=== PATIENT | female | born 1990 | race Caucasian/White ===

== ENCOUNTER → 2018-07-20 12:39 | Outpatient (POV) | payer OTHER, SELFPAY | PROVIDERS: Visit Provider Nurse Practitioner Acute Care | DX: Z00.00 Encounter for general adult medical examination without abnormal findings (principal) ==

== ENCOUNTER 2020-07-18 17:20 | Emergency (ER) | payer OTHER, SELFPAY ==
[2020-07-18 17:37] VITALS: BP 128/78; PULSE 79; RESP 18; TEMP 36.6; O2SAT 100; BMI 19.7
[2020-07-18 17:41] VITALS: BP 128/78; PULSE 79; RESP 18; TEMP 36.6; O2SAT 100
--- NOTE | 2020-07-18 18:09 | HMH.EDUTC ---
[place] Disposition Clinical Impression: Sinusitis Qualifiers: Sinusitis location: unspecified location Chronicity: unspecified Qualified Code(s): J32.9 - Chronic sinusitis, unspecified Disposition: Home, Self-Care Condition on Discharge: Good Instructions: Sinusitis, Sinus Headache, DI for Sinusitis, Sore Throat Additional Instructions: *Monitor Temp, Over the counter Motrin or Tylenol as directed/as needed Tylenol every 4 hours and Motrin every 6 hours (as long as your family doctor has told you that you can take it) for fever or pain. and straight to ER if unable to lower temp less than 101.0 after medication given *Warm salt water gargles may help to soothe the throat *Throat Lozenges *Warm fluids like tea with honey may help to soothe the throat *Sleep elevated *Humidifier/Vaporizer *Flonase 2 sprays in each nostril daily but be aware that it may take 2-3 days before you notice improvement Your throat swab was sent for culture. Those results are typically sent to your primary care. Be sure to follow up in 2-3 days with your family doctor/primary care physician if no improvement so they can review those result and treat if necessary. If you don?t have a primary care doctor, I recommend you get one but in the mean time, you will have to return to a walk in clinic Follow up IMMEDIATELY for new or worsening symptoms or no Noticeable improvement over the next 48-72 hours. 911 for difficulty breathing or swallowing You was tested for today for COVID19 your test result should be back in the next 24-48 hours, you may call to the [facility] tomorrow to see if your test results are back and the result [phone] You was given a handout with instructions for Self Quarantine and Self isolation for while you wait on test results and what to do if they are positive If you are positive the Health Dept will be contacting you also Prescriptions: Fluticasone Propionate [Flonase 50mcg nasal spray 16gm] 1 spr NS DAILY #1 bottle Transmission Status: Pending to [facility] # Azithromycin [Z-Sawyer 250mg Tab] 250 mg PO DIRECTED #6 tab Transmission Status: Pending to [facility] # Referrals: Ruchi Selby [Primary Care Provider] - As needed Time of Disposition: 18:13 Medical Decision Making - Grant Inquiry Pt receiving controlled substance: No Grant was queried for this patient: No Vital Signs: 07/18/20 17:37 07/18/20 17:41 Temperature 97.8 F 97.8 F Temperature Source Oral Pulse Rate 79 Pulse Rate [Left] 79 Respiratory Rate 18 18 Blood Pressure 128/78 Blood Pressure [Right Arm] 128/78 Blood Pressure Mean [Right Arm] 94 Blood Pressure Source [Right Arm] Automatic Cuff Blood Pressure Position [Right Arm] Sitting 02 Sat by Pulse Oximetry 100 Oxygen Delivery Method Room Air - Lab Data Lab results reviewed: Yes: I reviewed the patient's lab results. [place] HPI - General Stated complaint: sore throat Time Seen by Provider: 07/18/20 18:09 Mode of Arrival: Ambulatory Source of Information: Patient Limitations: No Limitations Description of Symptoms (Recalled from Triage Doc. by RN): sore throat, congestion, runny nose, headache, ear ache x 1 week HEENT Symptoms (Recalled from RN notes): Yes Resp Symptoms (Recalled from RN notes): Yes Skin Symptoms (Recalled from RN notes): No MS Symptoms (Recalled from RN notes): No Functional Status (Recalled from RN notes): stable - History of Present Illness Provider Complaint: Patient state that she has been having sinus pressure and drainage, sore throat and feeling of pressure in her ears. States that she was worried that she may have strep throat or something States that she come in and wanted to get checked - Related Data Previous Rx's Medication Instructions Recorded Amoxicillin [Amoxicillin 500mg 500 mg PO TID #30 cap 10/16/19 Cap] Fluticasone Propionate [Flonase 1 spr NS DAILY #1 bottle 10/16/19 50mcg nasal spray 16gm] Azit
[2020-07-18 20:30] LABS: UTC Strep Screen (Rapid) Negative (Negative)
[2020-07-20 17:05] LABS: Covid-19 Nasal PCR Sendout Lex Positive
--- NOTE | 2020-07-20 18:55 | PC.NURSE ---
PATIENT INFORMED OF POSITIVE COVID TEST RESULTS
== END 2020-07-18 18:18 | disposition home or self-care (01) ==
PROVIDERS: Emergency Provider Nurse Practitioner; PCP Nurse Practitioner Family
DX: U07.1 COVID-19 (principal); F17.210 Nicotine dependence, cigarettes, uncomplicated
CPT/HCPCS: 87880; 99201; U0004

== ENCOUNTER 2020-12-12 16:21 | Emergency (ER) | payer OTHER, SELFPAY ==
[2020-12-12 16:28] VITALS: BP 119/83; PULSE 69; RESP 16; TEMP 36.8; O2SAT 100; BMI 18.6
--- NOTE | 2020-12-12 17:02 | HMH.EDUTC ---
[facility] [place] Disposition Clinical Impression: Bronchitis Pharyngitis Qualifiers: Pharyngitis/tonsillitis etiology: unspecified etiology Qualified Code(s): J02.9 - Acute pharyngitis, unspecified Disposition: Home, Self-Care Condition on Discharge: Good Instructions: DI for Pharyngitis/Tonsillopharyngitis -- Adult Additional Instructions: Drink plenty of fluids. Take tylenol or ibuprofen for pain or fever. Take the medications as directed. Follow up with your regular doctor. GO TO THE ER FOR ANY WORSENING SYMPTOMS Prescriptions: Benzonatate [Tessalon Perle 100mg Cap] 100 mg PO TIDP PRN #30 cap PRN Reason: Cough Transmission Status: Received by [facility] # Azithromycin [Z-Sawyer 250mg Tab*] 250 mg PO UD DOSE PK #6 tab Transmission Status: Received by [facility] # Referrals: Santos Farley JR, MD [Primary Care Provider] - Forms: Work/School Release Time of Disposition: 17:06 Medical Decision Making - Medical Records Medical records reviewed: No: I reviewed the patient's medical records. - [place] Inquiry Pt receiving controlled substance: No Vital Signs: 12/12/20 16:28 12/12/20 17:13 Temperature 98.2 F 98 F Temperature Source Oral Pulse Rate 72 Pulse Rate [Right] 69 Respiratory Rate 16 16 Blood Pressure 114/81 Blood Pressure [Right Arm] 119/83 Blood Pressure Mean [Right Arm] 95 Blood Pressure Source [Right Arm] Automatic Cuff Blood Pressure Position [Right Arm] Sitting 02 Sat by Pulse Oximetry 100 - Lab Data Lab results reviewed: Yes: I reviewed the patient's lab results. Lab Results 12/12/20 16:59: Strep [facility] Negative Orders (Tests/Meds): ORDERS Category Date Time Status Strep Screen Confirmation Stat Micro 12/12/20 16:59 Received [facility] [place] HPI - General Stated complaint: sore throat, congestion Time Seen by Provider: 12/12/20 17:02 Mode of Arrival: Ambulatory Source of Information: Patient Limitations: No Limitations Description of Symptoms (Recalled from Triage Doc. by RN): sore throat, IBARRA, and congestion HEENT Symptoms (Recalled from RN notes): Yes (sore throat, congestion and IBARRA) Resp Symptoms (Recalled from RN notes): No Skin Symptoms (Recalled from RN notes): No MS Symptoms (Recalled from RN notes): No Functional Status (Recalled from RN notes): na - History of Present Illness Provider Complaint: She states that for the past 2 days she has had a sore throat, sinus drainage and she has felt bad. - Related Data Previous Rx's Medication Instructions Recorded Amoxicillin [Amoxicillin 500mg 500 mg PO TID #30 cap 10/16/19 Cap] Fluticasone Propionate [Flonase 1 spr NS DAILY #1 bottle 10/16/19 50mcg nasal spray 16gm] Azithromycin [Z-Sawyer 250mg Tab] 250 mg PO DIRECTED #6 tab 07/18/20 Fluticasone Propionate [Flonase 1 spr NS DAILY #1 bottle 07/18/20 50mcg nasal spray 16gm] Azithromycin [Z-Sawyer 250mg Tab*] 250 mg PO UD DOSE PK #6 tab 12/12/20 Benzonatate [Tessalon Perle 100mg 100 mg PO TIDP PRN #30 cap 12/12/20 Cap] Allergies Allergy/AdvReac Type Severity Reaction Status Date / Time No Known Allergies Allergy Verified 12/12/20 16:52 - Worker's Comp Is this a Worker's Comp case?: No [facility] History - Hepatitis A Screen Drug use history?: No High risk sexual behaviors?: No History of sexually transmitted infection?: No Currently employed?: No Childcare worker?: No Do you have indoor plumbing?: Yes Do you have electricity?: Yes Attestation statement:: This patient has been screened for Hepatitis A risk factors. I have reviewed the patient's past medical history: Yes Medical History: Denies:: Cancer, Diabetes Mellitus Type 1, Diabetes Mellitus Type 2, MRSA Amputation: No Fractures: No - Social History Smoking Status: Never smoker Tobacco Type: cigarettes # Packs/Day (cigarettes): 1 Alcohol Intake: never Occupational Status: employed ROS Obtained: Yes All systems reviewe
[2020-12-12 17:04] LABS: UTC Strep Screen (Rapid) Negative (Negative)
[2020-12-12 17:13] VITALS: BP 114/81; PULSE 72; RESP 16; TEMP 36.6
== END 2020-12-12 17:14 | disposition home or self-care (01) ==
PROVIDERS: Emergency Provider Nurse Practitioner Family; PCP Pediatrics
DX: J02.9 Acute pharyngitis, unspecified (principal); J20.9 Acute bronchitis, unspecified
CPT/HCPCS: 87880; 99202; G0463

== ENCOUNTER 2021-04-30 15:10 | Emergency (ER) | payer OTHER, SELFPAY ==
--- NOTE | 2021-04-30 15:20 | HMH.EDUTC ---
[facility] [place] Disposition Clinical Impression: Viral syndrome, Exposure to COVID-19 virus Disposition: Home, Self-Care Condition on Discharge: Good Instructions: DI for Viral Syndrome, DI for COVID-19 (Suspected or Confirmed ), Preventing the Spread of Coronavirus Discharge Instructions Additional Instructions: Drink plenty of fluids. Take tylenol for pain or fever. Return if you begin to have difficulty breathing. Follow up with your regular doctor. GO TO THE ER FOR ANY WORSENING SYMPTOMS Quarantine until you know the results of your covid-19 test. If it is positive, the health department should call you and give you further instructions about your length of Quarantine and other things. Notify your school or workplace of your results and follow their instructions regarding return to work/school. Prescriptions: Ondansetron [Zofran 4mg ODT] 4 mg PO Q8HP PRN #12 tab.rapdis PRN Reason: Nausea Transmission Status: Received by [email or web address] #[id number] Referrals: Santos Farley JR, MD [Primary Care Provider] - Time of Disposition: 16:00 Medical Decision Making - Medical Records Medical records reviewed: No: I reviewed the patient's medical records. - Grant Inquiry Pt receiving controlled substance: No Vital Signs: 04/30/21 15:24 04/30/21 16:26 Temperature 98.5 F 98.3 F Temperature Source Oral Pulse Rate 69 Pulse Rate [Right] 84 Respiratory Rate 16 14 Blood Pressure 121/78 02 Sat by Pulse Oximetry 98 Oxygen Delivery Method Room Air - Lab Data Lab results reviewed: Yes: I reviewed the patient's lab results. [facility] [place] HPI - General Stated complaint: vomitting headache Time Seen by Provider: 04/30/21 15:20 - History of Present Illness Provider Complaint: She states that she started feeling bad yesterday. At first, she thought she had motion sickness from riding in a car, but she continued to have nausea and a head ache thru last night and today. She denies any fever/chills/body aches. She did have covid-19 last July and she states that she felt different than she does now with covid-19. Her daughter recently had strep throat, but this patient's throat has not been significantly sore. - Related Data Previous Rx's Medication Instructions Recorded Amoxicillin [Amoxicillin 500mg 500 mg PO TID #30 cap 10/16/19 Cap] Fluticasone Propionate [Flonase 1 spr NS DAILY #1 bottle 10/16/19 50mcg nasal spray 16gm] Azithromycin [Z-Sawyer 250mg Tab] 250 mg PO DIRECTED #6 tab 07/18/20 Fluticasone Propionate [Flonase 1 spr NS DAILY #1 bottle 07/18/20 50mcg nasal spray 16gm] Azithromycin [Z-Sawyer 250mg Tab*] 250 mg PO UD DOSE PK #6 tab 12/12/20 Benzonatate [Tessalon Perle 100mg 100 mg PO TIDP PRN #30 cap 12/12/20 Cap] Ondansetron [Zofran 4mg ODT] 4 mg PO Q8HP PRN #12 tab.rapdis 04/30/21 Allergies Allergy/AdvReac Type Severity Reaction Status Date / Time No Known Allergies Allergy Verified 12/12/20 16:52 [facility] History - Hepatitis A Screen Attestation statement:: This patient has been screened for Hepatitis A risk factors. I have reviewed the patient's past medical history: Yes Medical History: Denies:: Cancer, Diabetes Mellitus Type 1, Diabetes Mellitus Type 2, MRSA Amputation: No Fractures: No - Social History Smoking Status: Never smoker Tobacco Type: cigarettes # Packs/Day (cigarettes): 1 Alcohol Intake: never Occupational Status: employed ROS Obtained: Yes All systems reviewed & no additional complaints - Constitutional Constitutional: Reports system reviewed and no additional complaints, except as docu - Eyes Eyes: Reports system reviewed and no additional complaints, except as docu - ENT Ears, Nose, Mouth, and Throat: Reports system reviewed and no additional complaints, except as docu - Cardiovascular Cardiovascular: Reports system reviewed and no additional complaints, except as docu - Respiratory Respiratory: Reports system review
[2021-04-30 15:24] VITALS: PULSE 84; RESP 16; TEMP 36.9; O2SAT 98; BMI 18.2
[2021-04-30 16:26] VITALS: BP 121/78; PULSE 69; RESP 14; TEMP 36.8; O2SAT 98
== END 2021-04-30 16:26 | disposition home or self-care (01) ==
PROVIDERS: Emergency Provider Nurse Practitioner Family; PCP Pediatrics
DX: B34.9 Viral infection, unspecified (principal); Z20.822 Contact with and (suspected) exposure to COVID-19
CPT/HCPCS: 99202; G0463; U0003

== ENCOUNTER 2021-10-23 16:19 | Emergency (ER) | payer OTHER, SELFPAY ==
[2021-10-23 16:19] VITALS: BP 125/79; PULSE 77; RESP 16; TEMP 36.8; O2SAT 100; BMI 18.0
--- NOTE | 2021-10-23 16:41 | CT_ITS ---
PROCEDURE INFORMATION: Exam: CT Head Without Contrast Exam date and time: 10/23/2021 4:41 PM Age: 31 years old Clinical indication: Pain; Patient HX: Headache for 3 days and turned into migraine today TECHNIQUE: Imaging protocol: Computed tomography of the head without contrast. Radiation optimization: All CT scans at this facility use at least one of these dose optimization techniques: automated exposure control; mA and/or kV adjustment per patient size (includes targeted exams where dose is matched to clinical indication); or iterative reconstruction. COMPARISON: No relevant prior studies available. FINDINGS: Brain: Normal. No hemorrhage. Unremarkable white matter. No mass effect. Cerebral ventricles: No ventriculomegaly. Paranasal sinuses: Visualized sinuses are unremarkable. No fluid levels. Mastoid air cells: Visualized mastoid air cells are well aerated. Bones/joints: No acute fracture. Soft tissues: No acute changes IMPRESSION: No acute intracranial abnormality.
--- NOTE | 2021-10-23 16:44 | PC.NURSE ---
Patient ambulatory to restroom
--- NOTE | 2021-10-23 17:07 | PC.NURSE ---
Patient sitting in chair. The bed was making him uncomfortable
[2021-10-23 17:12] LABS: Microscopic, Urine URINE MICROSCOPIC (MICROSCOPIC)
[2021-10-23 17:14] LABS: Basophils # 0.1 K/mm3 (0-0.2); Basophils % 0.6 % (0.1-2.0); Eosinophils # 0.1 K/mm3 (0.0-0.4); Eosinophils % 1.6 % (0.1-12.0); Hematocrit 36.9 % (37.0-47.0); Lymphocytes # 3.1 K/mm3 (0.7-4.5); Lymphocytes % 34.3 % (10-50); Mean Corpuscular HGB Conc 32.5 g/dL (31.8-35.4); Mean Corpuscular Hemoglobin 30.4 pg (27.0-31.2); Mean Corpuscular Volume 93.5 fl (81-99); Monocytes # 0.4 K/mm3 (0.1-1.0); Monocytes % 3.9 % (1.7-9.3); Neutrophils # 5.3 K/mm3 (1.8-7.8); Neutrophils % 59.6 % (37.0-80.0); Platelet Count 310 K/mm3 (142-424); Red Blood Count 3.95 M/mm3 (4.20-5.40); Red Cell Distribution Width 12.3 % (11.5-17.5); White Blood Count 8.9 K/mm3 (4.8-10.8)
[2021-10-23 17:19] VITALS: BP 107/74; PULSE 74; O2SAT 100
[2021-10-23 17:20] LABS: Appearance,Urine CLEAR (Clear); Bilirubin,Urine Negative (Negative); Blood, Urine Negative (Negative); Color,Urine YELLOW (Yellow); Glucose,Urine (UA) Negative (Negative); Ketones,Urine Negative (Negative); Leukocyte Esterase,Urine Negative (Negative); Nitrate,Urine Negative (Negative); Protein,Urine Negative (Negative); Specific Gravity, Urine <= 1.005 (1.005-1.030); Urobilinogen,Urine 0.2 EU/dl (0.2)
[2021-10-23 17:21] LABS: Alanine Aminotransferase 17 U/L (12-78); Albumin Level 4.7 g/dl (3.5-5.0); Albumin/Globulin Ratio 1.7 (1.1-1.8); Alkaline Phosphatase 32 U/L (38-126); Anion Gap 11.3 mEq/L (5-15); Aspartate Amino Transferase 37 U/L (14-36); Bilirubin,Total 0.5 mg/dl (0.2-1.3); Blood Urea Nitrogen 11 mg/dl (7-17); Calcium 9.1 mg/dl (8.4-10.2); Carbon Dioxide 28 mmol/L (22.0-30.0); Chloride 107 mmol/L (98-107); Creatinine Clearance Estimated 100 mL/min (50-200); Estimated Glomerular Filt Rate 115 ml/min (>60); GFR (African American) 139 ML/MIN (>60); Globulin 2.7 g/dL (1.3-3.2); Glucose 91 mg/dl (74-100); Potassium 4.3 mmoL/L (3.5-5.1); Sodium 142 mmol/L (136-145); Total Protein,Serum 7.4 g/dl (6.3-8.2)
[2021-10-23 17:26] LABS: Urine Pregnancy, HCG Qual. Negative (Negative)
--- NOTE | 2021-10-23 17:29 | PC.NURSE ---
Patient to CT with international trade manager
[2021-10-23 17:31] LABS: Squamous Epithelial Cell,Urine Occasional #/hpf (0-5); WBC,Urine Occasional #/hpf (0-3)
--- NOTE | 2021-10-23 17:44 | HMH.EDGENADL ---
[place] Disposition Clinical Impression: Migraine Qualifiers: Migraine type: unspecified Status migrainosus presence: with status migrainosus Intractability: not intractable Qualified Code(s): G43.901 - Migraine, unspecified, not intractable, with status migrainosus Disposition: Home, Self-Care Condition on Discharge: Good Instructions: DI for Migraine Additional Instructions: Additional instructions for HEADACHE: See your physician as soon as possible for further evaluation. Return immediately if worsening headache, vomiting, problems with vision or speech, fever, numbness or weakness of the extremities, neck pain or stiffness. Referrals: Santos Farley JR, MD [Primary Care Provider] - - Critical Care Critical Care Time: No Attestation: On 10/23/21, the high probability of a clinically significant, sudden or life threatening deterioration of the following system(s) required my full and direct attention, intervention and personal management. The time I documented below is in addition to time spent performing reported procedures but includes the following listed in this critical care notation. Medical Decision Making - Grant Inquiry Pt receiving controlled substance: No Vital Signs: 10/23/21 16:19 10/23/21 17:19 10/23/21 18:16 Temperature 98.3 F Temperature Source Oral Pulse Rate 74 66 Pulse Rate [Right] 77 Respiratory Rate 16 Blood Pressure 107/74 L 109/70 L Blood Pressure [Right Arm] 125/79 Blood Pressure Mean [Right Arm] 94 Blood Pressure Source [Right Arm] Automatic Cuff Blood Pressure Position [Right Arm] Sitting 02 Sat by Pulse Oximetry 100 100 100 Oxygen Delivery Method Room Air Room Air Room Air - Lab Data Lab Results 10/23/21 16:57: Urine Color Yellow, Urine Appearance Clear, Urine pH 6.0, Ur Specific [place] <= 1.005, Urine Protein Negative, Urine Glucose (UA) Negative, Urine Ketones Negative, Urine Blood Negative, Urine Nitrate Negative, Urine Bilirubin Negative, Urine Urobilinogen 0.2, Ur Leukocyte Esterase Negative, Urine RBC None, Urine WBC Occasional, Ur Squamous Epith Cells Occasional, Urine Bacteria None 10/23/21 16:57: WBC 8.9, RBC 3.95 L, Hgb 12.0 L, Hct 36.9 L, MCV 93.5, MCH 30.4, MCHC 32.5, RDW 12.3, Plt Count 310, MPV 9.0, Neut % (Auto) 59.6, Lymph % (Auto) 34.3, Dyer % (Auto) 3.9, Eos % (Auto) 1.6, Baso % (Auto) 0.6, Neut # (Auto) 5.3, Lymph # (Auto) 3.1, Dyer # (Auto) 0.4, Eos # (Auto) 0.1, Baso # (Auto) 0.1 10/23/21 16:57: Urine HCG, Qual Negative 10/23/21 16:57: Sodium 142, Potassium 4.3, Chloride 107, Carbon Dioxide 28, Anion Gap 11.3, BUN 11, Creatinine 0.60, Estimated Creat Clear 100, Estimated GFR 115, Est GFR ( Amer) 139, Glucose 91, Calcium 9.1, Total Bilirubin 0.5, AST 37 H, ALT 17, Alkaline Phosphatase 32 L, Total Protein 7.4, Albumin 4.7, Globulin 2.7, Albumin/Globulin Ratio 1.7 Result diagrams: 10/23/21 16:57 10/23/21 16:57 Orders (Tests/Meds): ED MEDICATIONS Generic Name Dose Route Start Last Admin Trade Name Freq PRN Reason Stop Dose Admin Sodium Chloride 10 ml 10/23/21 16:42 10/23/21 18:05 Sodium Chloride 0.9% 10ml Flush Syringe IV 11/22/21 16:41 10 ml NEEDED PRN Administration Maintain IV Site Discontinued Medications Generic Name Dose Route Start Last Admin Trade Name Freq PRN Reason Stop Dose Admin Diphenhydramine HCl 25 mg 10/23/21 17:51 10/23/21 18:05 Diphenhydramine 50mg/Ml Vial IV 10/23/21 17:52 25 mg ONCE ONE Administration Ketorolac Tromethamine 30 mg 10/23/21 17:51 10/23/21 18:04 Ketorolac 30mg/Ml Vial IV 10/23/21 17:52 30 mg ONCE ONE Administration Prochlorperazine Edisylate 5 mg 10/23/21 17:51 10/23/21 18:04 Prochlorperazine 10mg/2ml Vial IV 10/23/21 17:52 5 mg ONCE ONE Administration - CT Data CT Scan: Head Time Received: 18:[address] Reviewed: Yes: I have viewed the radiologist's interpretation Findings Narrative: PROCEDURE INFORMATION: Exam: CT Head W
[2021-10-23 18:16] VITALS: BP 109/70; PULSE 66; O2SAT 100
--- NOTE | 2021-10-23 18:25 | PC.NURSE ---
Patient is resting comfortably
[2021-10-23 19:04] VITALS: BP 100/58; PULSE 78; RESP 16; TEMP 36.8; O2SAT 98
== END 2021-10-23 19:05 | disposition home or self-care (01) ==
PROVIDERS: Emergency Provider Emergency Medicine; PCP Pediatrics
DX: G43.901 Migraine, unspecified, not intractable, with status migrainosus (principal)
CPT/HCPCS: 70450; 80053; 81001; 81025; 85025; 96374; 96375; 99283

== ENCOUNTER 2023-04-09 19:13 | Emergency (ER) | payer OTHER, SELFPAY ==
[2023-04-09 19:23] VITALS: BP 147/93; PULSE 95; RESP 16; TEMP 36.7; O2SAT 100; BMI 18.8
--- NOTE | 2023-04-09 19:26 | EXP.UTC ---
Discharge Plan Disposition Patient Disposition: Home, Self-Care Condition: Good Prescriptions Prescriptions: New cyclobenzaprine 10 mg Tablet 10 mg PO BID PRN (Reason: Muscle Spasm) Qty: 20 0RF methylprednisolone 4 mg Tablets,Dose Pack 4 mg PO DIRECTED Qty: 21 0RF No Action amoxicillin 500 MG capsule 500 mg PO TID Qty: 30 0RF fluticasone propionate 120 SPR/BOT bottle 1 spr NS DAILY Qty: 1 0RF Rx Instructions: each nostril daily ondansetron 4 MG tablet,disintegrating 4 mg PO Q8HP PRN (Reason: Nausea) Qty: 12 0RF azithromycin 250 MG tablet 250 mg PO DIRECTED Qty: 6 0RF Rx Instructions: Take two (2) tablets on day #1, then one (1) tablet day #2 thru #5 fluticasone propionate 120 SPR/BOT bottle 1 spr NS DAILY Qty: 1 0RF Rx Instructions: 1 spray in each nostril daily azithromycin 250 MG tablet 250 mg PO UD DOSE PK Qty: 6 0RF Rx Instructions: Take two (2) tablets today, then one (1) tablet days #2 thru #5 benzonatate 100 MG capsule 100 mg PO TIDP PRN (Reason: Cough) Qty: 30 0RF Referrals Follow up/Referrals: Fernanda Rhoades APRN [Primary Care Provider] - See instructions Activity Restrictions/Add. Instructions Additional Instructions/Restrictions: Go home and rest. It would be best if you rested for the next couple of days. No heavy lifting. No twisting. The muscle relaxer (cyclobenzaprine--Flexeril) will make you drowsy, so don't drive or operate heavy machinery after taking it. Don't start the oral steroids (medrol dose pack) until tomorrow, since you had the shots in here today. Follow up with your regular doctor. Keep the appointment with your physician that you already have scheduled. GO TO THE ER FOR ANY WORSENING SYMPTOMS OR CONCERN, ESPECIALLY BOWEL OR BLADDER ISSUES, SADDLE AREA NUMBNESS, FEVER, ETC Clinical Impressions Clinical Impression: Torticollis Stand Alone Forms Stand Alone Forms: Work/School Release Instructions Patient Instructions: Torticollis, DI for Torticollis, Methylprednisolone Injection, Ketorolac Injection Discharge ED Provider: Daniel Palacios [facility] HPI General Stated complaint: neck pain Time Seen by Provider: 04/09/23 19:26 History of Present Illness Provider Complaint: She states that she has had left sided neck pain for the past 5 days. She states that today, after she worked strenously mowing her grass, her pain and stiffness got worse. So, she came in to be checked. She denies any known injury. She denies any recent mva and falls. Related Data Previous Rx's Medication Instructions Recorded amoxicillin 500 mg capsule 500 mg PO TID #30 caps 10/16/19 fluticasone propionate 50 1 spr NS DAILY ##1 10/16/19 mcg/actuation nasal spray,suspension azithromycin 250 mg tablet 250 mg PO DIRECTED #6 tabs 07/18/20 fluticasone propionate 50 1 spr NS DAILY ##1 07/18/20 mcg/actuation nasal spray,suspension azithromycin 250 mg tablet 250 mg PO UD DOSE PK #6 tabs 12/12/20 benzonatate 100 mg capsule 100 mg PO TIDP PRN Cough #30 caps 12/12/20 ondansetron 4 mg disintegrating 4 mg PO Q8HP PRN Nausea ##12 04/30/21 tablet cyclobenzaprine 10 mg tablet 10 mg PO BID PRN Muscle Spasm #20 04/09/23 tabs methylprednisolone 4 mg tablets in 4 mg PO DIRECTED #21 tabs 04/09/23 a dose pack Allergies Allergy/AdvReac Type Severity Reaction Status Date / Time No Known Allergies Allergy Verified 12/12/20 16:52 [facility] Disclaimer: The information contained in this section may have been updated after the patient was seen, as this information can be updated by other users. Social History Smoking Status: Never smoker second hand exposure: No alcohol intake: never current occupational status: employed Travel in the last 8 weeks: None ROS Obtained: Yes All systems reviewed & no additional complaints except as documented Constitutional Constitutional: Denies chills an
[2023-04-09 20:11] VITALS: BP 147/93; PULSE 95; RESP 16; TEMP 36.6
== END 2023-04-09 20:13 | disposition home or self-care (01) ==
PROVIDERS: Emergency Provider Nurse Practitioner Family; PCP Nurse Practitioner Family
DX: M43.6 Torticollis (principal)
CPT/HCPCS: 96372; 99212; 99214; G0463

== ENCOUNTER → 2023-07-22 10:57 | Outpatient (CLI) | payer OTHER, SELFPAY ==
--- NOTE | 2023-07-22 11:11 | MR_ITS ---
FINAL REPORT CLINICAL HISTORY: PAIN IN RIGHT KNEE, POPPING, KNEE GIVES OUT NO INJURY FINDINGS: Multi planar MR imaging was performed of the right knee. The anterior and posterior cruciate ligaments are intact. The quadriceps and patellar tendons are intact. The medial and lateral menisci are intact without evidence of tear. The medial and lateral collateral ligaments appear intact. The medial and lateral retinacula appear intact. There is no evidence of bone marrow edema or osteochondral defect. No evidence of soft tissue inflammatory reaction. IMPRESSION: No evidence of significant internal derangement. Reviewed, Interpreted and Dictated by Reji Shay MD Transcribed by Cayetano Swenson Authenticated and . [facility]
== END ==
LOC: RAD 10:58
PROVIDERS: PCP Nurse Practitioner Family; Visit Provider Nurse Practitioner Family
DX: M25.561 Pain in right knee (principal)
CPT/HCPCS: 73721

== ENCOUNTER 2024-02-14 18:42 | Emergency (ER) | payer OTHER, SELFPAY ==
[2024-02-14 18:44] VITALS: BP 139/84; PULSE 98; RESP 18; TEMP 36.7; O2SAT 99; BMI 20.5
[2024-02-14 19:00] VITALS: BP 112/87; PULSE 96; O2SAT 100
--- NOTE | 2024-02-14 19:13 | HMH.EDGENADL ---
Discharge Plan Disposition Patient Disposition: Admitted Chief Complaint: Abdominal Pain Clinical Impressions Clinical Impression: Acute pancreatitis Discharge ED Provider: Ghassan Silva General Adult HPI General Chief complaint: Abdominal Pain Stated complaint: upper abdominal pain, back pain ,headache Time Seen by Provider: 02/14/24 18:50 Mode of Arrival: Ambulatory Source of Information: Patient Limitations: No Limitations Description of Symptoms (Recalled from ER Triage Doc. by RN): epigastric pain History of Present Illness HPI narrative: Please note that above description of symptoms, in this electronic medical record under categorization of recalled from ER triage doctor by RN are reflective of an initial nursing assessment, however, is not reflective of my full history and physical exam that was personally taken and clarified. Consequentially, this preceding description of symptoms, which may include the patient's categorized chief complaint in the EMR, do not reflect my personal clinical impression, and the ultimate description of history of present illness and patient stated complaints should be deferred to this section of the note. Unless stated otherwise or congruent with this section of the note, additional signs, symptoms, or incongruence should be interpreted as inaccurate with my clinical impression. Related Data Previous Rx's Medication Instructions Recorded amoxicillin 500 mg capsule 500 mg PO TID #30 caps 10/16/19 fluticasone propionate 50 1 spr NS DAILY ##1 10/16/19 mcg/actuation nasal spray,suspension azithromycin 250 mg tablet 250 mg PO DIRECTED #6 tabs 07/18/20 fluticasone propionate 50 1 spr NS DAILY ##1 07/18/20 mcg/actuation nasal spray,suspension azithromycin 250 mg tablet 250 mg PO UD DOSE PK #6 tabs 12/12/20 benzonatate 100 mg capsule 100 mg PO TIDP PRN Cough #30 caps 12/12/20 ondansetron 4 mg disintegrating 4 mg PO Q8HP PRN Nausea ##12 04/30/21 tablet cyclobenzaprine 10 mg tablet 10 mg PO BID PRN Muscle Spasm #20 04/09/23 tabs methylprednisolone 4 mg tablets in 4 mg PO DIRECTED #21 tabs 04/09/23 a dose pack Allergies Allergy/AdvReac Type Severity Reaction Status Date / Time No Known Allergies Allergy Verified 12/12/20 16:52 [facility] Disclaimer: The information contained in this section may have been updated after the patient was seen, as this information can be updated by other users. Social History Smoking Status: Current every day smoker tobacco type: cigarettes packs per day: 1 second hand exposure: No alcohol intake: never current occupational status: employed Travel in the last 8 weeks: None ROS Obtained: Yes All systems reviewed & no additional complaints except as documented Physical Exam General General appearance: alert and in no apparent distress Head Head exam: atraumatic and normocephalic Eye Eye exam: Present normal appearance, PERRL and EOMI ENT ENT exam: Present mucous membranes moist Neck Neck exam: Present normal inspection, full ROM and trachea midline Respiratory Respiratory exam: Absent respiratory distress, wheezes, stridor, accessory muscle use or prolonged expiratory phase Cardiovascular Cardiovascular exam: Present normal rhythm Abdominal Exam Abdominal exam: Present soft and tenderness; Absent distention, guarding, rebound or rigidity Abdominal tenderness: Present epigastrium and mild Extremities Exam Extremities exam: Absent edema Neurological Exam Neurological exam: Present alert, oriented X3, CN II-XII intact and normal gait; Absent motor sensory deficit Skin Skin exam: Present warm and dry; Absent diaphoresis or erythema Medical Decision Making Medical Records Medical records reviewed: Yes I reviewed the patient's medical records. Grant Inquiry Pt receiving controlled substance: No Grant was queried for this patient: No Vital Signs: 02/14/24 18:44 02/14/24 19:00 02/14/24 19:30 Temperature 98.1 F Temperature Source Oral Pulse Rate 96 H 93 H Pulse Rate [Right] 98 H Respiratory Rate 18 Blood Pressure 112/87 116/81 Blood Pressure [Right Arm] 139/84 Blood Pressure Mean 94 87 Blood Pressure Mean [Right Arm] 102 02 Sat by Pulse Oximetry 99 100 100 Oxygen Delivery Method Room Air 02/14/24 19:45 02/14/24 20:30 Temperature Temperature Source Pulse Rate 93 H 79 Pulse Rate [Right] Respiratory Rate 18 Blood Pressure 116/81 105/74 L Blood Pressure [Right Arm] Blood Pressure Mean 81 Blood Pressure Mean [Right Arm] 02 Sat by Pulse Oximetry 99 98 Oxygen Delivery Method Lab Data Lab Results 02/14/24 19:00: WBC 14.1 H, RBC 4.13 L, Hgb 12.5, Hct 38.4, MCV 92.9, MCH 30.2, MCHC 32.5, RDW 13.2, Plt Count 324, MPV 8.7, Neut % (Auto) 83.3 H, Lymph % (Auto) 11.1, [place] % (Auto) 3.0, Eos % (Auto) 2.2, Baso % (Auto) 0.3, Neut # (Auto) 11.8 H, Lymph # (Auto) 1.6, [place] # (Auto) 0.4, Eos # (Auto) 0.3, Baso # (Auto) 0.0, Sodium 137, Potassium 3.7, Chloride 104, Carbon Dioxide 26, Anion Gap 10.7, BUN 8, Creatinine 0.70, Estimated Creat Clear 96, Estimated GFR 95, Est GFR ( Amer) 115, Glucose 98, Calcium 9.6, Total Bilirubin 0.4, AST 29, ALT 21, Alkaline Phosphatase 66, Total Protein 7.7, Albumin 4.6, Globulin 3.1, Albumin/Globulin Ratio 1.5, Lipase 1769 H, HCG, Quant < 2 02/14/24 20:45: Urine Color Yellow, Urine Appearance Clear, Urine pH 7.0, Ur Specific [place] <= 1.005, Urine Protein Negative, Urine Glucose (UA) Negative, Urine Ketones Negative, Urine Blood Negative, Urine Nitrate Negative, Urine Bilirubin Negative, Urine Urobilinogen 0.2, Ur Leukocyte Esterase Negative, Urine RBC None, Urine WBC Occasional, Ur Squamous Epith Cells 5-10, Urine Bacteria Trace 02/14/24 19:00 02/14/24 19:00 Orders (Tests/Meds): ED MEDICATIONS Generic Name Dose Route Start Last Admin Trade Name Freq PRN Reason Stop Dose Admin Hydromorphone HCl 1 mg 02/14/24 21:30 Hydromorphone 2mg/Ml Syringe IV 02/14/24 21:31 ONCE ONE Lactated Ringer's 1,000 mls @ 150 mls/hr 02/14/24 21:30 Lactated Ringer's 1000 Ml Bag IV 03/15/24 21:29 .Q6H40M [place] Sodium Chloride 10 ml 02/14/24 20:00 02/14/24 20:01 Sodium Chloride 0.9% 10ml Syr (Rad Only) IV 03/15/24 19:59 10 ml NEEDED PRN Administration Maintain IV Site Discontinued Medications Generic Name Dose Route Start Last Admin Trade Name Freq PRN Reason Stop Dose Admin Hydromorphone HCl 0.5 mg 02/14/24 19:41 02/14/24 19:50 Hydromorphone 2mg/Ml Syringe IV 02/14/24 19:42 0.5 mg ONCE ONE Administration Lactated Ringer's 1,000 mls @ 999 mls/hr 02/14/24 19:41 02/14/24 19:49 Lactated Ringer's 1000 Ml Bag IV 02/14/24 20:41 999 mls/hr .Q1H1M ONE Administration Iopamidol 75 ml 02/14/24 20:00 02/14/24 20:00 Iopamidol-370 (76%);100ml Bottle IV 02/14/24 20:01 75 ml ONCE ONE Administration Ketorolac Tromethamine 15 mg 02/14/24 19:13 02/14/24 19:25 Ketorolac 30mg/Ml Vial IV 02/14/24 19:14 15 mg ONCE ONE Administration Ondansetron HCl 4 mg 02/14/24 19:41 02/14/24 19:49 Ondansetron 4mg/2ml Vial IV 02/14/24 19:42 4 mg ONCE ONE Administration ORDERS Category Date Time Status CT abdomen pelvis w con Stat Cat Scan 02/14/24 19:41 Completed POCUS Point of Care (ER Only) Stat Exams 02/14/24 19:14 Ordered CBC w/Auto Diff [Complete Blood Count Auto Diff] Stat Lab 02/14/24 19:00 Completed CMP [Comprehensive Metabolic Panel] Stat Lab 02/14/24 19:00 Completed HCG,Quantitative Stat Lab 02/14/24 19:00 Completed Lipase Stat Lab 02/14/24 19:00 Completed UA [Urinalysis and Microscopic] Stat Lab 02/14/24 20:45 Completed Medical Decision Narrative: 33-year-old female no relevant medical history other than appendectomy and tubal ligation presenting with abdominal pain.'s been getting worse for the past 3 to 4 days. Patient states that not associated with food intake. Has not been vomiting, but is nauseated. Decreased p.o. intake. Has not had diarrhea or constipation. States that the pain is moderate in intensity, constant, radiates through directly to her back. Has never had anything like this in the past. Does not drink alcohol daily, no strong alcohol or drug history. Never been told she had gallstones. No chance she is . Last menstrual period was 3 weeks ago normal for her. No urinary symptoms or abnormal vaginal discharge or bleeding. History was obtained via conversation with patient. On arrival, patient hemodynamically stable, alert, oriented x4, appropriate, GCS 15, moving all extremities spontaneously, pupils equal and reactive to light. Full physical exam performed and significant for very well-appearing woman in no acute distress. Abdomen is soft, nondistended, but mildly tender in epigastrium. No overlying skin changes. Monte sign negative, McBurney's point tenderness negative. Nontachycardic, normotensive. Differential includes PUD, gastritis, enteritis, gastroenteritis, pancreatitis, SBO, colitis, diverticulitis, nephrolithiasis, UTI, , cholecystitis, choledocholithiasis, hepatitis, torsion, aortic pathology, mesenteric ischemia among others. Patient was given Toradol for symptomatic management and correction of underlying abnormalities. On reevaluation, patient states that she feels like her ribs are broken posteriorly, patient given Zofran and Dilaudid as well as fluids. Workup independently interpreted and significant for leukocytosis 14.1 with neutrophilia. Chemistry normal. Patient's lipase elevated at almost 1800. hCG negative. Bedside [id number] ultrasound with gallstones, but no secondary findings of cholecystitis. Common bile duct within normal limits. CT of the abdomen and pelvis with concern for early pancreatitis, no bile duct dilation and no obvious stone in the duct. Distant with ultrasound. See radiology read for full review of final results. On reevaluation, patient feeling little better, but pain is starting to come back. Home-going versus hospitalization was discussed with patient, ultimately she opted for inpatient admission for pain control and bowel rest with IV fluids given progression of pain over the last 6 days. I feel this is appropriate. Hospital medicine was contacted and case was discussed at length, see their note for recommendations. I feel this is consistent with acute pancreatitis, likely secondary to gallstones, given small gallstones versus sludge on right upper quadrant ultrasound and normal duct, normal imaging. Because patient high risk for clinical decompensation, deemed appropriate for inpatient admission. Results were relayed to patient who voiced understanding and patient was agreeable to inpatient admission and management. Patient was admitted to the hospital for further definitive management. [employer] disclaimer Much of this encounter note is an electronic receiving tank operator spoken language to printed text. Electronic receiving tank operator of the spoken language may permit errors. Although I have reviewed the note, some errors may still exist. Procedures Limited Ultrasound Indication:: Limited RUQ ultrasound Indication: Abdominal pain radiating to back Identified structures: -Gallbladder -Gallbladder wall -Common bile duct -Liver Findings: Sonographic Monte sign: Absent Gallstones: Present Sludge: Absent Pericholecystic fluid: Absent Maximal GB wall thickness (mm) (normal is </= 3mm): Normal Common bile duct width (mm) (normal is </= 6mm): Normal Gallbladder width (cm) (normal is < 4cm): Normal Gallbladder length (cm) (normal is < 10cm): Normal Impression: Cholelithiasis without secondary signs of cholecystitis. Normal bile duct Images were saved to permanent archive The study was technically adequate CPT 57684-60 This study was performed by me, and I personally interpreted all images/videos. Based on my clinical judgement, these images were adequate and did not necessitate further imaging. Critical Care Critical Care Time Critical Care Time: No
[2024-02-14 19:22] LABS: Chloride 104 mmol/L (98-107); Potassium 3.7 mmoL/L (3.5-5.1); Sodium 137 mmol/L (136-145)
[2024-02-14 19:23] LABS: Basophils % 0.3 % (0.1-2.0); Eosinophils # 0.3 K/mm3 (0.0-0.4); Eosinophils % 2.2 % (0.1-12.0); Hematocrit 38.4 % (37.0-47.0); Hemoglobin 12.5 g/dL (12.2-16.2); Lymphocytes # 1.6 K/mm3 (0.7-4.5); Lymphocytes % 11.1 % (10-50); Mean Corpuscular HGB Conc 32.5 g/dL (31.8-35.4); Mean Corpuscular Hemoglobin 30.2 pg (27.0-31.2); Mean Corpuscular Volume 92.9 fl (81-99); Mean Platelet Volume 8.7 fl (7.4-10.4); Monocytes # 0.4 K/mm3 (0.1-1.0); Neutrophils # 11.8 K/mm3 (1.8-7.8); Neutrophils % 83.3 % (37.0-80.0); Platelet Count 324 K/mm3 (142-424); Red Blood Count 4.13 M/mm3 (4.20-5.40); Red Cell Distribution Width 13.2 % (11.5-17.5); White Blood Count 14.1 K/mm3 (4.8-10.8)
[2024-02-14 19:25] LABS: Alanine Aminotransferase 21 U/L (12-78); Albumin Level 4.6 g/dl (3.5-5.0); Albumin/Globulin Ratio 1.5 (1.1-1.8); Alkaline Phosphatase 66 U/L (38-126); Anion Gap 10.7 mEq/L (5-15); Aspartate Amino Transferase 29 U/L (14-36); Bilirubin,Total 0.4 mg/dl (0.2-1.3); Blood Urea Nitrogen 8 mg/dl (7-17); Calcium 9.6 mg/dl (8.4-10.2); Carbon Dioxide 26 mmol/L (22.0-30.0); Creatinine Clearance Estimated 96 mL/min (50-200); Estimated Glomerular Filt Rate 95 ml/min (>60); GFR (African American) 115 ML/MIN (>60); Globulin 3.1 g/dL (1.3-3.2); Glucose 98 mg/dl (74-100); Total Protein,Serum 7.7 g/dl (6.3-8.2)
[2024-02-14] MEDS: KETOROLAC 30MG/ML VIAL 15 MG IV (19:25)
[2024-02-14 19:28] LABS: Lipase 1769 U/L (23-300)
[2024-02-14 19:30] VITALS: BP 116/81; PULSE 93; O2SAT 100
--- NOTE | 2024-02-14 19:41 | CT_ITS ---
PROCEDURE INFORMATION: Exam: CT Abdomen And Pelvis With Contrast Exam date and time: 02/14/2024 7:57 PM Age: 33 years old Clinical indication: Abdominal pain; Epigastric; Additional info: Pancreatitis, gallstones, rule out obstruction TECHNIQUE: Imaging protocol: Computed tomography of the abdomen and pelvis with contrast. Total images: 272 Radiation optimization: All CT scans at this facility use at least one of these dose optimization techniques: automated exposure control; mA and/or kV adjustment per patient size (includes targeted exams where dose is matched to clinical indication); or iterative reconstruction. Contrast material: ISOVUE; Contrast volume: 75 ml; Contrast route: IV; COMPARISON: No relevant prior studies available. FINDINGS: Lungs: Calcified right lower lobe granuloma. Lung bases are clear. Heart: Normal heart size. Liver: Normal. No mass. Gallbladder and bile ducts: Normal. No calcified stones. No ductal dilation. Pancreas: Very subtle area of decreased attenuation in the pancreatic tail, axial image 37 and 38, may reflect focal pancreatitis. No complicating features. Question mild fat stranding at the pancreatic tail. Spleen: Normal. No splenomegaly. Adrenal glands: Normal. No mass. Kidneys and ureters: No hydronephrosis, nephrolithiasis, or renal mass. Stomach and bowel: Unremarkable stomach and duodenum. No ileus or bowel obstruction. Fluid-filled segments of nondilated small bowel is most likely physiologic. Moderate colonic stool burden. No acute colonic inflammatory process. Collapsed rectum. Appendix: The appendix is not clearly visualized. No secondary signs of appendicitis. Intraperitoneal space: No ascites. No free air. Vasculature: Abdominal aorta is normal in caliber. Major abdominal vessels enhance appropriately. Lymph nodes: Unremarkable. No enlarged lymph nodes. Urinary bladder: Unremarkable as visualized. Reproductive: Uterus and ovaries are physiologic. Trace free pelvic fluid considered physiologic. 17 mm right ovarian dominant follicle. Bones/joints: Unremarkable. No acute fracture. Soft tissues: Very tiny fat containing periumbilical hernia. IMPRESSION: 1. Very subtle changes suspected to represent acute early pancreatitis. No complicating features. 2. No calcified gallstones or bile duct dilatation. 3. Moderate colonic stool burden. 4. Trace free pelvic fluid considered physiologic.
[2024-02-14 19:45] VITALS: BP 116/81; PULSE 93; RESP 18; O2SAT 99
[2024-02-14 19:46] LABS: HCG,Quantitative < 2 mIU/ml (0-5.42)
[2024-02-14] MEDS: ONDANSETRON 4MG/2ML VIAL 4 MG IV (19:49)
[2024-02-14] MEDS: LACTATED RINGERS 1000ML 1,000 ML 999 ML IV (19:49)
[2024-02-14] MEDS: HYDROMORPHONE 2MG/ML SYRINGE 0.5 MG IV (19:50)
[2024-02-14] MEDS: IOPAMIDOL-370 (76%);100ML BOTTLE 75 ML IV (20:00)
[2024-02-14] MEDS: SODIUM CHLORIDE 0.9% 10ML SYR (RAD ONLY) 10 ML IV (20:01)
--- NOTE | 2024-02-14 20:21 | PC.NURSE ---
Pt states pain is now 01/15. informed. Pt is in bed at this time.
[2024-02-14 20:30] VITALS: BP 105/74; PULSE 79; O2SAT 98
[2024-02-14 20:50] LABS: Microscopic, Urine URINE MICROSCOPIC (MICROSCOPIC)
[2024-02-14 20:58] LABS: Appearance,Urine CLEAR (Clear); Bilirubin,Urine Negative (Negative); Blood, Urine Negative (Negative); Color,Urine YELLOW (Yellow); Glucose,Urine (UA) Negative (Negative); Ketones,Urine Negative (Negative); Leukocyte Esterase,Urine Negative (Negative); Nitrate,Urine Negative (Negative); Protein,Urine Negative (Negative); Specific Gravity, Urine <= 1.005 (1.005-1.030); Urobilinogen,Urine 0.2 EU/dl (0.2)
[2024-02-14 21:12] LABS: Bacteria,Urine Trace /lpf; WBC,Urine Occasional #/hpf (0-3)
--- NOTE | 2024-02-14 21:27 | PC.NURSE ---
Pt admitted to [facility], House Sup informed.
--- NOTE | 2024-02-14 21:36 | PC.NURSE ---
Report given to ALIZA Palomares
[2024-02-14] MEDS: HYDROMORPHONE 2MG/ML SYRINGE 1 MG IV (21:42)
[2024-02-14 21:46] VITALS: BP 105/74; PULSE 72; RESP 16; TEMP 37; O2SAT 97
--- NOTE | 2024-02-14 21:57 | PC.NURSE ---
Hospitalist came to pt room prior to leaving ED and decided that she did not want to be admitted; both hospitalist and ED MD agreed in pt going home with outpatient follow up.
--- NOTE | 2024-02-14 22:07 | EXP.HPDC ---
General Admission date:: 02/14/24 Discharge date: 02/14/24 *Admission Date: 02/14/24 *Chief complaint: Abd pain *History of present illness: This is a 33-year-old female no relevant medical history other than appendectomy and tubal ligation presenting with abdominal pain.'s been getting worse for the past 3 to 4 days. Patient states that not associated with food intake. Has not been vomiting, but is nauseated. Decreased p.o. intake. Has not had diarrhea or constipation. States that the pain is moderate in intensity, constant, radiates through directly to her back. Has never had anything like this in the past. Does not drink alcohol daily, no strong alcohol or drug history. Never been told she had gallstones. No chance she is . Last menstrual period was 3 weeks ago normal for her. No urinary symptoms or abnormal vaginal discharge or bleeding. patient undergoing treatment with macrobid for UTI. History was obtained via conversation with patient. [facility] Disclaimer: The information contained in this section may have been updated after the patient was seen, as this information can be updated by other users. Social History Smoking Status: Current every day smoker tobacco type: cigarettes packs per day: 1 second hand exposure: No alcohol intake: never current occupational status: employed Travel in the last 8 weeks: None Review of Systems Review of Systems Review of systems:: pertinent systems reviewed and negative unless documented below Exam Data for Last 24 hours Vital signs and Labs for Last 24 Hours: Temp Pulse Resp BP Pulse Ox O2 Del Method 98.6 F 72 16 105/74 L 98 Room Air 02/14/24 21:46 02/14/24 21:46 02/14/24 21:46 02/14/24 21:46 02/14/24 20:30 02/14/24 21:46 Laboratory Results - last 24 hr 02/14/24 19:00: WBC 14.1 H, RBC 4.13 L, Hgb 12.5, Hct 38.4, MCV 92.9, MCH 30.2, MCHC 32.5, RDW 13.2, Plt Count 324, MPV 8.7, Neut % (Auto) 83.3 H, Lymph % (Auto) 11.1, [place] % (Auto) 3.0, Eos % (Auto) 2.2, Baso % (Auto) 0.3, Neut # (Auto) 11.8 H, Lymph # (Auto) 1.6, [place] # (Auto) 0.4, Eos # (Auto) 0.3, Baso # (Auto) 0.0, Sodium 137, Potassium 3.7, Chloride 104, Carbon Dioxide 26, Anion Gap 10.7, BUN 8, Creatinine 0.70, Estimated Creat Clear 96, Estimated GFR 95, Est GFR ( Amer) 115, Glucose 98, Calcium 9.6, Total Bilirubin 0.4, AST 29, ALT 21, Alkaline Phosphatase 66, Total Protein 7.7, Albumin 4.6, Globulin 3.1, Albumin/Globulin Ratio 1.5, Lipase 1769 H, HCG, Quant < 2 02/14/24 20:45: Urine Color Yellow, Urine Appearance Clear, Urine pH 7.0, Ur Specific [place] <= 1.005, Urine Protein Negative, Urine Glucose (UA) Negative, Urine Ketones Negative, Urine Blood Negative, Urine Nitrate Negative, Urine Bilirubin Negative, Urine Urobilinogen 0.2, Ur Leukocyte Esterase Negative, Urine RBC None, Urine WBC Occasional, Ur Squamous Epith Cells 5-10, Urine Bacteria Trace I & O for Last 24 hours: Intake & Output 02/11/24 02/12/24 02/13/24 02/14/24 23:59 23:59 23:59 23:59 Weight 54.431 kg Constitutional Constitutional: no acute distress *Routine HEENT Exam Head: Present normocephalic Eye: Present EOMI and PERRL ENT: Present mucous membranes moist *Routine Neck Exam Neck: Present supple; Absent lymphadenopathy *Routine Respiratory Exam Respiratory: Present CTA bilaterally *Routine Cardiovascular Exam Cardiovascular: Present RRR *Routine Abdominal Exam Abdominal: Present soft, normoactive bowel sounds, tenderness and guarding *Routine Rectal Exam Rectal:: deferred *Routine Genitalia Exam Genitalia:: deferred *Routine Extremities Exam Extremities: Absent cyanosis, clubbing or edema *Routine Skin Exam Skin: Present warm; Absent rash *Routine Neurological Exam Neurological: Present alert and oriented X3 Meds Home Medications and Allergies Home Medications Medication Instructions Recorded Confirmed Type ondansetron 4 mg disintegrating 4 mg PO Q8HP PRN Nausea ##12 04/30/21 Rx tablet oxycodone-acetaminophen 7.5 mg-300 1 tab PO Q4-6H PRN pain #7 tabs 02/14/24 Rx mg tablet New Prescriptions to Start Prescriptions: oxycodone-acetaminophen Lorenzo Saab Allergies Allergy/AdvReac Type Severity Reaction Status Date / Time No Known Allergies Allergy Verified 12/12/20 16:52 Hospital Course Hospital Course Hospital Course: Patient seen and evaluated at the ED. admission was requested for acute pancreatitis no necrosis and not infectious. WBC elevated more likely inflammatory. No need for antibiotic. likely secondary to gallstone. Patient was closely waiting for inpatient pain management. On my assessment patient hemodynamically stable, no acute distress, heart rate fever hydration bolus and hydromorphone, pain has improved. Denies any nausea and vomiting. While presented with plan of care all inpatient versus home pain management and hydration, patient elected to try home. Recommendation given for hydration advance diet as tolerated. Nausea and vomiting medication pain management. Educated on return to ED if symptoms worsening or does not improve. Patient discharged home stable condition Discussed case with PATHOLOGY ASSISTANT in the morning. Agree with plan as documented. Needs close outpatient follow-up for further management. Results Data Completed and Pending Labs on day of discharge: Labs from last 24 hours 02/14/24 02/14/24 20:45 19:00 WBC 14.1 H RBC 4.13 L Hgb 12.5 Hct 38.4 MCV 92.9 MCH 30.2 MCHC 32.5 RDW 13.2 Plt Count 324 MPV 8.7 Neut % (Auto) 83.3 H Lymph % (Auto) 11.1 [place] % (Auto) 3.0 Eos % (Auto) 2.2 Baso % (Auto) 0.3 Neut # (Auto) 11.8 H Lymph # (Auto) 1.6 [place] # (Auto) 0.4 Eos # (Auto) 0.3 Baso # (Auto) 0.0 Sodium 137 Potassium 3.7 Chloride 104 Carbon Dioxide 26 Anion Gap 10.7 BUN 8 Creatinine 0.70 Estimated Creat Clear 96 Estimated GFR 95 Est GFR ( Amer) 115 Glucose 98 Calcium 9.6 Total Bilirubin 0.4 AST 29 ALT 21 Alkaline Phosphatase 66 Total Protein 7.7 Albumin 4.6 Globulin 3.1 Albumin/Globulin Ratio 1.5 Lipase 1769 H HCG, Quant < 2 Urine Color Yellow Urine Appearance Clear Urine pH 7.0 Ur Specific [place] <= 1.005 Urine Protein Negative Urine Glucose (UA) Negative Urine Ketones Negative Urine Blood Negative Urine Nitrate Negative Urine Bilirubin Negative Urine Urobilinogen 0.2 Ur Leukocyte Esterase Negative Urine RBC None Urine WBC Occasional Ur Squamous Epith Cells 5-10 Urine Bacteria Trace Imaging and Cardiology CT scan - abdomen: Status: image reviewed by me, Preliminary report and final report DS: Diagnosis Discharge Diagnosis (1) Pancreatitis: Status: Acute Code(s): K85.90 - Acute pancreatitis without necrosis or infection, unspecified Qualifiers: Acute pancreatitis complication: no infection or necrosis Chronicity: acute Pancreatitis type: biliary Qualified Code(s): K85.10 - Biliary acute pancreatitis without necrosis or infection Discharge Plan Disposition Patient Disposition: Home, Self-Care Condition: Fair Prescriptions Prescriptions: New oxycodone-acetaminophen 7.5-300 mg tablet 1 tab PO Q4-6H PRN (Reason: pain) Qty: 7 0RF Continued ondansetron 4 MG tablet,disintegrating 4 mg PO Q8HP PRN (Reason: Nausea) Qty: 12 0RF Discontinued amoxicillin 500 MG capsule 500 mg PO TID Qty: 30 0RF fluticasone propionate 120 SPR/BOT bottle 1 spr NS DAILY Qty: 1 0RF Rx Instructions: each nostril daily azithromycin 250 MG tablet 250 mg PO DIRECTED Qty: 6 0RF Rx Instructions: Take two (2) tablets on day #1, then one (1) tablet day #2 thru #5 fluticasone propionate 120 SPR/BOT bottle 1 spr NS DAILY Qty: 1 0RF Rx Instructions: 1 spray in each nostril daily azithromycin 250 MG tablet 250 mg PO UD DOSE PK Qty: 6 0RF Rx Instructions: Take two (2) tablets today, then one (1) tablet days #2 thru #5 benzonatate 100 MG capsule 100 mg PO TIDP PRN (Reason: Cough) Qty: 30 0RF cyclobenzaprine 10 mg Tablet 10 mg PO BID PRN (Reason: Muscle Spasm) Qty: 20 0RF methylprednisolone 4 mg Tablets,Dose Pack 4 mg PO DIRECTED Qty: 21 0RF Referrals Follow up/Referrals: Christiano Franz MD [Staff Physician] - See instructions (call office for f/u appt and formal upper abdomen US) Fernanda Rhoades APRN [Primary Care Provider] - See instructions Activity Restrictions/Add. Instructions Additional Instructions/Restrictions: advance diet as tolerate it. start by clear liquid first. return to ED if symptoms worsened Clinical Impressions Clinical Impression: Acute pancreatitis, Pancreatitis Instructions Patient Instructions: Acute Abdominal Pain, DI for Acute Abdominal Pain Discharge ED Provider: Ghassan Silva
== END 2024-02-14 22:43 | disposition home or self-care (01) ==
LOC: ER 19:01 → 2ND 21:38
PROVIDERS: Emergency Provider Emergency Medicine; PCP Nurse Practitioner Family; Visit Provider Internal Medicine Adolescent Medicine
DX: K85.90 Acute pancreatitis without necrosis or infection, unspecified (principal); R10.13 Epigastric pain; K80.80 Other cholelithiasis without obstruction; F17.210 Nicotine dependence, cigarettes, uncomplicated
CPT/HCPCS: 74177; 80053; 81001; 83690; 84702; 85025; 96361; 96374; 96375; 96376; 99285; J1170; J1885; J2405; J7120; Q9967

== ENCOUNTER 2024-04-11 14:48 | Emergency (ER) | payer OTHER, SELFPAY ==
[2024-04-11 15:00] VITALS: BP 124/79; PULSE 70; RESP 20; TEMP 36.6; O2SAT 100; BMI 20.8
--- NOTE | 2024-04-11 15:40 | EXP.UTC ---
Discharge Plan Disposition Patient Disposition: Home, Self-Care Condition: Good Prescriptions Prescriptions: New amoxicillin 500 mg capsule 500 mg PO TID 7 Days Qty: 21 0RF fluticasone propionate [Flonase Allergy Relief] 50 mcg/actuation spray,suspension 1 - 2 spray intranasal DAILY Qty: 16 0RF Rx Instructions: administer into each nostril daily meclizine 25 mg tablet 25 mg PO TID PRN (Reason: dizziness) Qty: 15 0RF methylprednisolone [Medrol (Sawyer)] 4 mg tablets,dose pack See Rx Instructions .Route .COMPLEX 6 Days Qty: 21 0RF Rx Instructions: taper pack; ondansetron 4 mg tablet,disintegrating 4 mg PO Q8H PRN (Reason: nausea and vomiting) Qty: 10 0RF No Action propranolol 20 mg tablet 20 mg PO DAILY Patient Comments: TAKE 1 TABLET BY MOUTH ONCE DAILY bupropion HCl 150 mg tablet extended release 24 hr 150 mg PO AM Patient Comments: TAKE 1 TABLET BY MOUTH ONCE DAILY IN THE MORNING desvenlafaxine succinate 100 mg tablet extended release 24 hr 100 mg PO DAILY Patient Comments: TAKE 1 TABLET BY MOUTH ONCE DAILY Referrals Follow up/Referrals: Fernanda Rhoades APRN [Primary Care Provider] - See instructions Activity Restrictions/Add. Instructions Additional Instructions/Restrictions: Take medication as prescribed Be careful with movements slow and steady Follow up with your Family Doctor if no improvement or any worsening of symptoms Return if needed Straight to ER if any life threatening symptoms Clinical Impressions Clinical Impression: Labyrinthitis Stand Alone Forms Stand Alone Forms: Work/School Release Instructions Patient Instructions: DI for Vertigo, DI for Labyrinthitis, Meclizine Print Language Print Language: [place] Discharge ED Provider: Daniella Romo [facility] General Stated complaint: dizzy, abd pain Mode of Arrival: Ambulatory Source of Information: Patient Limitations: No Limitations Time Seen by Provider: 04/11/24 15:40 Description of Symptoms (Recalled from Triage Doc. by RN): PATIENT C/O NAUSEA, HEADACHE, CHILLS, AND DIZZINESS X 2 DAYS. SHE ALSO STATES SHE HAS A KNOT TO HER AXILLA AREA X 2 DAYS HEENT Symptoms (Recalled from RN notes): Yes Resp Symptoms (Recalled from RN notes): No Skin Symptoms (Recalled from RN notes): No MS Symptoms (Recalled from RN notes): No Functional Status (Recalled from RN notes): WNL History of Present Illness Provider Complaint: Patient states that she was having nasal congestion and pressure then she woke up and she felt dizzy when she would turn her head or her eyes States that she has hx of BPPV States todays she was still not feeling well and the dizziness was making her feel nauseous so she came in States also she has a small pea sized knot under her right axilla she would like to have looked at Related Data Home Medications ?Medication ?Instructions ?Recorded ?Confirmed bupropion HCl 150 mg 24 hr tablet, 150 mg PO AM 04/11/24 04/11/24 extended release desvenlafaxine succinate 100 mg 100 mg PO DAILY 04/11/24 04/11/24 tablet,extended release 24 hr propranolol 20 mg tablet 20 mg PO DAILY 04/11/24 04/11/24 Previous Rx's ?Medication ?Instructions ?Recorded amoxicillin 500 mg capsule 500 mg PO TID 7 days #21 caps 04/11/24 fluticasone propionate 50 1 - 2 spray intranasal DAILY #16 04/11/24 mcg/actuation nasal grams spray,suspension (Flonase Allergy Relief) meclizine 25 mg tablet 25 mg PO TID PRN dizziness #15 tabs 04/11/24 methylprednisolone 4 mg tablets in See Rx Instructions .Route 04/11/24 a dose pack (Medrol (Sawyer)) .COMPLEX 6 days #21 tabs ondansetron 4 mg disintegrating 4 mg PO Q8H PRN nausea and 04/11/24 tablet vomiting #10 tabs Allergies Allergy/AdvReac Type Severity Reaction Status Date / Time No Known Allergies Allergy Verified 12/12/20 16:52 Worker's Comp Is this a Worker's Comp case?: No [facility] Disclaimer: The information contained in this section may have been updated after the patient was seen, as this information can be updated by other users. Medical History (Updated 04/11/24 @ 15:51 by Daniella Romo APRN) Osteochondroma Pancreatitis UTI (urinary tract infection) Depression Anxiety Hypertension Surgical History (Updated 04/11/24 @ 15:18 by Lindsey Phelps RN) Hx of LASIK History of tympanostomy tube placement History of tubal ligation History of appendectomy Social History Smoking Status: Current every day smoker tobacco type: cigarettes packs per day: 1 second hand exposure: No alcohol intake: never current occupational status: employed Travel in the last 8 weeks: None ROS Obtained: Yes All systems reviewed & no additional complaints except as documented and Yes Systems reviewed as appropriate & no additional complaints except as documented Constitutional Constitutional: Reports system reviewed and no additional complaints, except as documented, Reports as per HPI and Reports chills ENT Ears, Nose, Mouth, and Throat: Reports dizziness, Reports nasal congestion and Reports nasal discharge Cardiovascular Cardiovascular: Reports system reviewed and no additional complaints, except as documented and Reports as per HPI Respiratory Respiratory: Reports system reviewed and no additional complaints, except as documented and Reports as per HPI Gastrointestinal Gastrointestingal: Reports system reviewed and no additional complaints, except as documented, as per HPI and nausea Genitourinary Female Genitourinary: Reports system reviewed and no additional complaints, except as documented and Reports as per HPI Neurologic Neurologic: Reports dizziness Physical Exam General General appearance: alert and in no apparent distress ENT ENT exam: Present mucous membranes moist Expanded ENT Exam TM/Canal exam: Right TM: erythema and Bilateral TM: bulging Nose exam: Present sinus tenderness Respiratory Respiratory exam: Present normal lung sounds bilaterally; Absent respiratory distress or wheezes Cardiovascular Cardiovascular exam: Present regular rate, normal rhythm and normal heart sounds Neurological Exam Neurological exam: Present alert, oriented X3 and normal gait Medical Decision Making Grant Inquiry Pt receiving controlled substance: No Grant was queried for this patient: No Vital Signs: 04/11/24 15:00 Temperature 97.9 F Temperature Source Oral Pulse Rate [Left Brachial] 70 Respiratory Rate 20 Blood Pressure [Left Arm] 124/79 Blood Pressure Mean [Left Arm] 94 Blood Pressure Source [Left Arm] Automatic Cuff Blood Pressure Position [Left Arm] Sitting 02 Sat by Pulse Oximetry 100 Oxygen Delivery Method Room Air
[2024-04-11 15:54] VITALS: BP 124/79; PULSE 70; RESP 20; TEMP 36.6; O2SAT 100
== END 2024-04-11 15:59 | disposition home or self-care (01) ==
PROVIDERS: Emergency Provider Nurse Practitioner; PCP Nurse Practitioner Family
DX: H83.01 Labyrinthitis, right ear (principal); R42 Dizziness and giddiness; R09.81 Nasal congestion; R11.0 Nausea
CPT/HCPCS: 99212; 99214; G0463

== ENCOUNTER 2024-05-05 19:17 | Emergency (ER) | payer OTHER, SELFPAY ==
[2024-05-05 19:19] VITALS: BP 124/86; PULSE 102; RESP 16; TEMP 37.2; O2SAT 98; BMI 21.1
--- NOTE | 2024-05-05 19:39 | HMH.EDGENADL ---
Discharge Plan Disposition Patient Disposition: Home, Self-Care Chief Complaint: Abdominal Pain Prescriptions Prescriptions: No Action propranolol 20 mg tablet 20 mg PO DAILY Patient Comments: TAKE 1 TABLET BY MOUTH ONCE DAILY bupropion HCl 150 mg tablet extended release 24 hr 150 mg PO AM Patient Comments: TAKE 1 TABLET BY MOUTH ONCE DAILY IN THE MORNING desvenlafaxine succinate 100 mg tablet extended release 24 hr 100 mg PO DAILY Patient Comments: TAKE 1 TABLET BY MOUTH ONCE DAILY amoxicillin 500 mg capsule 500 mg PO TID 7 Days Qty: 21 0RF fluticasone propionate [Flonase Allergy Relief] 50 mcg/actuation spray,suspension 1 - 2 spray intranasal DAILY Qty: 16 0RF Rx Instructions: administer into each nostril daily meclizine 25 mg tablet 25 mg PO TID PRN (Reason: dizziness) Qty: 15 0RF methylprednisolone [Medrol (Sawyer)] 4 mg tablets,dose pack See Rx Instructions .Route .COMPLEX 6 Days Qty: 21 0RF Rx Instructions: taper pack; ondansetron 4 mg tablet,disintegrating 4 mg PO Q8H PRN (Reason: nausea and vomiting) Qty: 10 0RF Referrals Follow up/Referrals: Fernanda Rhoades APRN [Primary Care Provider] - See instructions Activity Restrictions/Add. Instructions Additional Instructions/Restrictions: Call your family doctor to establish care for this visit to the emergency department and schedule follow-up within 48 hours to ensure improvement. If you have any worsening of your condition or any other concerning signs or symptoms, return to the emergency department or your primary care doctor for further evaluation. Clinical Impressions Clinical Impression: Acute epigastric pain Instructions Patient Instructions: DI for Acute Abdominal Pain Print Language Print Language: [place] Discharge ED Provider: Ghassan Silva General Adult HPI General Chief complaint: Abdominal Pain Stated complaint: sever abd pain headache nausea Time Seen by Provider: 05/05/24 19:22 History of Present Illness HPI narrative: Please note that above description of symptoms, in this electronic medical record under categorization of recalled from ER triage doctor by RN are reflective of an initial nursing assessment, however, is not reflective of my full history and physical exam that was personally taken and clarified. Consequentially, this preceding description of symptoms, which may include the patient's categorized chief complaint in the EMR, do not reflect my personal clinical impression, and the ultimate description of history of present illness and patient stated complaints should be deferred to this section of the note. Unless stated otherwise or congruent with this section of the note, additional signs, symptoms, or incongruence should be interpreted as inaccurate with my clinical impression. Related Data Home Medications ?Medication ?Instructions ?Recorded ?Confirmed bupropion HCl 150 mg 24 hr tablet, 150 mg PO AM 04/11/24 04/11/24 extended release desvenlafaxine succinate 100 mg 100 mg PO DAILY 04/11/24 04/11/24 tablet,extended release 24 hr propranolol 20 mg tablet 20 mg PO DAILY 04/11/24 04/11/24 Previous Rx's ?Medication ?Instructions ?Recorded amoxicillin 500 mg capsule 500 mg PO TID 7 days #21 caps 04/11/24 fluticasone propionate 50 1 - 2 spray intranasal DAILY #16 04/11/24 mcg/actuation nasal grams spray,suspension (Flonase Allergy Relief) meclizine 25 mg tablet 25 mg PO TID PRN dizziness #15 tabs 04/11/24 methylprednisolone 4 mg tablets in See Rx Instructions .Route 04/11/24 a dose pack (Medrol (Sawyer)) .COMPLEX 6 days #21 tabs ondansetron 4 mg disintegrating 4 mg PO Q8H PRN nausea and 04/11/24 tablet vomiting #10 tabs Allergies Allergy/AdvReac Type Severity Reaction Status Date / Time No Known Allergies Allergy Verified 12/12/20 16:52 [facility] Disclaimer: The information contained in this section may have been updat
[2024-05-05 19:48] LABS: Basophils # 0.1 K/mm3 (0-0.2); Basophils % 0.4 % (0.1-2.0); Eosinophils # 0.3 K/mm3 (0.0-0.4); Eosinophils % 2.6 % (0.1-12.0); Hematocrit 38.3 % (37.0-47.0); Hemoglobin 12.3 g/dL (12.2-16.2); Lymphocytes # 1.2 K/mm3 (0.7-4.5); Lymphocytes % 9.7 % (10-50); Mean Corpuscular HGB Conc 32.2 g/dL (31.8-35.4); Mean Corpuscular Hemoglobin 30.8 pg (27.0-31.2); Mean Corpuscular Volume 95.8 fl (81-99); Mean Platelet Volume 8.4 fl (7.4-10.4); Monocytes # 0.3 K/mm3 (0.1-1.0); Monocytes % 2.4 % (1.7-9.3); Neutrophils # 10.5 K/mm3 (1.8-7.8); Neutrophils % 84.9 % (37.0-80.0); Platelet Count 314 K/mm3 (142-424); Red Cell Distribution Width 13.5 % (11.5-17.5); White Blood Count 12.3 K/mm3 (4.8-10.8)
[2024-05-05 19:52] LABS: Lactic Acid 0.9 mmol/L (0.7-2.1)
[2024-05-05 19:53] LABS: Alanine Aminotransferase 28 U/L (12-78); Albumin Level 4.3 g/dl (3.5-5.0); Albumin/Globulin Ratio 1.4 (1.1-1.8); Alkaline Phosphatase 63 U/L (38-126); Anion Gap 10.6 mEq/L (5-15); Aspartate Amino Transferase 34 U/L (14-36); Bilirubin,Total 0.3 mg/dl (0.2-1.3); Blood Urea Nitrogen 12 mg/dl (7-17); Calcium 9.1 mg/dl (8.4-10.2); Carbon Dioxide 23 mmol/L (22.0-30.0); Chloride 107 mmol/L (98-107); Creatinine Clearance Estimated 115 mL/min (50-200); Estimated Glomerular Filt Rate 114 ml/min (>60); GFR (African American) 138 ML/MIN (>60); Glucose 92 mg/dl (74-100); Lipase 235 U/L (23-300); Potassium 3.6 mmoL/L (3.5-5.1); Sodium 137 mmol/L (136-145); Total Protein,Serum 7.3 g/dl (6.3-8.2)
[2024-05-05 20:40] LABS: HCG,Quantitative < 2 mIU/ml (0-5.42)
[2024-05-05 21:26] LABS: Microscopic, Urine URINE MICROSCOPIC (MICROSCOPIC)
[2024-05-05 21:27] LABS: Appearance,Urine CLEAR (Clear); Bilirubin,Urine Negative (Negative); Blood, Urine Negative (Negative); Color,Urine YELLOW (Yellow); Glucose,Urine (UA) Negative (Negative); Ketones,Urine Negative (Negative); Leukocyte Esterase,Urine Negative (Negative); Nitrate,Urine Negative (Negative); PH,Urine 6.5 (5.0-8.5); Protein,Urine Negative (Negative); Urobilinogen,Urine 0.2 EU/dl (0.2)
[2024-05-05 21:46] LABS: Bacteria,Urine Trace /lpf; WBC,Urine Occasional #/hpf (0-3)
[2024-05-05 22:01] VITALS: BP 118/78; PULSE 95; RESP 18; TEMP 36.9; O2SAT 97
== END 2024-05-05 22:02 | disposition home or self-care (01) ==
PROVIDERS: Emergency Provider Emergency Medicine; PCP Nurse Practitioner Family
DX: R10.13 Epigastric pain (principal); R11.0 Nausea
CPT/HCPCS: 80053; 81001; 83605; 83690; 84702; 85025; 96361; 96374; 96375; 99285; J1885; J2270; J2405; J7120; S0028

== ENCOUNTER 2024-07-08 13:17 | Emergency (ER) | payer OTHER, SELFPAY ==
[2024-07-08 13:38] VITALS: BP 120/86; PULSE 67; RESP 17; TEMP 37; O2SAT 100; BMI 22.3
--- NOTE | 2024-07-08 14:20 | EXP.UTC ---
Discharge Plan Disposition Patient Disposition: Home, Self-Care Condition: Good Prescriptions Prescriptions: New amoxicillin 500 mg capsule 500 mg PO TID 7 Days Qty: 21 0RF methylprednisolone [Medrol (Sawyer)] 4 mg tablets,dose pack See Rx Instructions .Route .COMPLEX 6 Days Qty: 21 0RF Rx Instructions: taper pack; No Action propranolol 20 mg tablet 20 mg PO DAILY Patient Comments: TAKE 1 TABLET BY MOUTH ONCE DAILY desvenlafaxine succinate 100 mg tablet extended release 24 hr 20 mg PO DAILY Patient Comments: TAKE 1 TABLET BY MOUTH ONCE DAILY Referrals Follow up/Referrals: Fernanda Rhoades APRN [Primary Care Provider] - See instructions Activity Restrictions/Add. Instructions Additional Instructions/Restrictions: *Monitor Temp, Over the counter Motrin or Tylenol as directed/as needed Tylenol every 4 hours and Motrin every 6 hours (as long as your family doctor has told you that you can take it) for fever or pain. and straight to ER if unable to lower temp less than 101.0 after medication given Take medication as prescribed *Sleep elevated *Humidifier/Vaporizer Follow up IMMEDIATELY for new or worsening symptoms or no Noticeable improvement over the next 48-72 hours. 911 for difficulty breathing or swallowing Clinical Impressions Clinical Impression: Otitis media Instructions Patient Instructions: Middle Ear Infection, Ear Infections (Alternative Therapy) Print Language Print Language: French Discharge ED Provider: Daniella Romo [facility] General Stated complaint: heachache, congestion, pain in R ear Mode of Arrival: Ambulatory Source of Information: Patient Time Seen by Provider: 07/08/24 14:20 Description of Symptoms (Recalled from Triage Doc. by RN): IBARRA, BODY ACHES, CONGESTION, RIGHT EAR ACHE HEENT Symptoms (Recalled from RN notes): Yes Resp Symptoms (Recalled from RN notes): Yes Skin Symptoms (Recalled from RN notes): No MS Symptoms (Recalled from RN notes): No Functional Status (Recalled from RN notes): WNL History of Present Illness Provider Complaint: Patient states that she has been having headache, body aches, sinus pain and pressure and pain and pressure in her right ear that has been going on for a week or so so today she came in to get it checked Related Data Home Medications ?Medication ?Instructions ?Recorded ?Confirmed desvenlafaxine succinate 100 mg 20 mg PO DAILY 07/08/24 07/08/24 tablet,extended release 24 hr propranolol 20 mg tablet 20 mg PO DAILY 07/08/24 07/08/24 Previous Rx's ?Medication ?Instructions ?Recorded amoxicillin 500 mg capsule 500 mg PO TID 7 days #21 caps 07/08/24 methylprednisolone 4 mg tablets in See Rx Instructions .Route 07/08/24 a dose pack (Medrol (Sawyer)) .COMPLEX 6 days #21 tabs Allergies Allergy/AdvReac Type Severity Reaction Status Date / Time No Known Allergies Allergy Verified 12/12/20 16:52 Worker's Comp Is this a Worker's Comp case?: No [facility] Disclaimer: The information contained in this section may have been updated after the patient was seen, as this information can be updated by other users. Medical History (Updated 07/08/24 @ 14:26 by Daniella Romo APRN) Osteochondroma Pancreatitis UTI (urinary tract infection) Depression Anxiety Hypertension Surgical History (Updated 04/11/24 @ 15:18 by Lindsey Phelps RN) Hx of LASIK History of tympanostomy tube placement History of tubal ligation History of appendectomy Social History Smoking Status: Current every day smoker tobacco type: cigarettes packs per day: 1 second hand exposure: No alcohol intake: never current occupational status: employed Travel in the last 8 weeks: None ROS Obtained: Yes All systems reviewed & no additional complaints except as documented and Yes Systems reviewed as appropriate & no additional complaints except as documented Constitutional Constitutional: Reports system reviewed and no additional complaints, except as documented and Reports as per HPI ENT Ears, Nose, Mouth, and Throat: Reports system reviewed and no additional complaints, except as documented, Reports as per HPI, Reports otalgia, Reports sinus pain and Reports sinus pressure Cardiovascular Cardiovascular: Reports system reviewed and no additional complaints, except as documented and Reports as per HPI Respiratory Respiratory: Reports system reviewed and no additional complaints, except as documented and Reports as per HPI Physical Exam General General appearance: alert and in no apparent distress ENT ENT exam: Present mucous membranes moist Expanded ENT Exam TM/Canal exam: Right TM: erythema and bulging Nose exam: Present sinus tenderness (mild) Respiratory Respiratory exam: Present normal lung sounds bilaterally; Absent respiratory distress or wheezes Cardiovascular Cardiovascular exam: Present regular rate, normal rhythm and normal heart sounds Neurological Exam Neurological exam: Present alert, oriented X3 and normal gait Medical Decision Making Medical Records Screening: Per USPSTF and CDC recommendations, given the prevalence of disease in our region, it is our hospital?s policy to screen for HIV and viral Hepatitis for all patients aged 18 and over and those with ongoing risk factors. Grant Inquiry Pt receiving controlled substance: No Grant was queried for this patient: No Vital Signs: 07/08/24 13:38 Temperature 98.6 F Temperature Source Oral Pulse Rate [Left Radial] 67 Respiratory Rate 17 Blood Pressure [Left Arm] 120/86 Blood Pressure Mean [Left Arm] 97 02 Sat by Pulse Oximetry 100
[2024-07-08 14:27] VITALS: BP 120/86; PULSE 67; RESP 17; TEMP 37
== END 2024-07-08 14:40 | disposition home or self-care (01) ==
PROVIDERS: Emergency Provider Nurse Practitioner; PCP Nurse Practitioner Family
DX: H66.93 Otitis media, unspecified, bilateral (principal)
CPT/HCPCS: 99212; G0381

== ENCOUNTER 2024-12-11 12:44 | Outpatient (CLI) | payer BC, SELFPAY ==
--- NOTE | 2024-12-11 12:55 | XR_ITS ---
PROCEDURE INFORMATION: Exam: XR Cervical Spine Exam date and time: 12/11/2024 12:58 PM Age: 34 years old Clinical indication: Other: Limited rom; Neck pain TECHNIQUE: Imaging protocol: Radiologic exam of the cervical spine. Views: 4 or 5 views. COMPARISON: CT HEAD/BRAIN WO CON 10/23/2021 5:28 PM FINDINGS: Bones/joints: Mild straightening of the cervical lordosis otherwise cervical curvature and alignment is unremarkable. Disc heights are maintained. No significant degenerative changes. Neural foramina are patent. No fracture, subluxation or spondylolisthesis detected. Soft tissues: No prevertebral soft tissue swelling. IMPRESSION: Mild straightening of cervical lordosis otherwise unremarkable cervical spine
== END 2024-12-11 23:59 | disposition home or self-care (01) ==
LOC: RAD 12:47
PROVIDERS: PCP Nurse Practitioner Family; Visit Provider Nurse Practitioner Family
DX: M54.2 Cervicalgia (principal)
CPT/HCPCS: 72050